=== PATIENT | male | born 1985 | race African-American/Black ===

== ENCOUNTER 2017-03-23 18:22 | Emergency (ER) | payer OTHER ==
[~2017-03-23] VITALS: Ht 182.9 cm; Wt 88.0 kg
[~2017-03-23 18:22] MED LIST: Z.0.NO CURRENT MEDS
[2017-03-23 19:15] VITALS: BP 153/90; PULSE 96; RESP 16; TEMP 98.6; O2SAT 96
[2017-03-23] MEDS ORDERED: METO50TA PO (20:44)
[2017-03-23] MEDS ORDERED: PERC5TAB12 PO (21:23)
== END 2017-03-23 20:00 | disposition left against medical advice (07) ==
LOC: NETRI 18:22
DX: M25.512 Pain in left shoulder (principal); V27.0XXA Motorcycle driver injured in collision with fixed or stationary object in nontraffic accident, initial encounter; Z53.21 Procedure and treatment not carried out due to patient leaving prior to being seen by health care provider
CPT/HCPCS: 99281

== ENCOUNTER 2017-03-23 20:12 | Emergency (ER) | payer SELFPAY ==
[~2017-03-23] VITALS: Ht 177.8 cm; Wt 127.9 kg
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
[2017-03-23 20:28] VITALS: BP 146/77; PULSE 98; RESP 18; TEMP 98.1; O2SAT 98
[2017-03-23] MEDS ORDERED: METO50TA PO (20:44)
[2017-03-23] MEDS ORDERED: PERC5TAB12 PO (21:23)
[2017-03-23] MEDS ORDERED: IBUPROFEN 600 MG TAB PO ONE (21:30)
[2017-03-23] MEDS ORDERED: oxyCODONE/ACETAMINOPHEN 5 MG/325 MG TAB PO ONE (21:30)
[2017-03-23 21:32] VITALS: BP 146/77; PULSE 100; RESP 18; O2SAT 100
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
[2017-03-23 22:36] VITALS: BP 155/88; RESP 18
== END 2017-03-23 22:38 | disposition home or self-care (01) ==
LOC: PHED 20:12
DX: S40.012A Contusion of left shoulder, initial encounter (principal); V29.00XA Motorcycle driver injured in collision with unspecified motor vehicles in nontraffic accident, initial encounter; W22.09XA Striking against other stationary object, initial encounter
CPT/HCPCS: 73030; 73130; 99283